=== PATIENT | female | born 1985 | race Caucasian/White ===

== ENCOUNTER → 2017-04-02 | Outpatient (REF) | payer BC, OTHER ==
[~2017-04-02] MED LIST: IBUP80TA PO; TYLE325T5 PO
[2017-04-02 19:34] LABS: MEAN CORPUSCULAR HEMOGLOBIN 32.1 pg (27.0-33.0); MEAN CORPUSCULAR HGB CONC 34.4 g/dl (32.0-36.5); MEAN CORPUSCULAR VOLUME 93.3 fl (80.0-96.0); RED CELL DISTRIBUTION WIDTH 12.3 % (11.5-14.5); WHITE BLOOD COUNT 7.2 K/mm3 (4.0-10.0)
[2017-04-02 20:18] LABS: CONTROL LINE HCG INT CTR LINE PRESENT
== END ==
LOC: M LAB REF 16:28
PROVIDERS: ATTEND Obstetrics & Gynecology
DX: O36.80X0 Pregnancy with inconclusive fetal viability, not applicable or unspecified (principal)

== ENCOUNTER → 2017-05-05 | Outpatient (REF) | payer BC, OTHER | LOC: M LAB REF 16:38 | PROVIDERS: ATTEND Obstetrics & Gynecology | DX: Z34.81 Encounter for supervision of other normal pregnancy, first trimester (principal); Z3A.11 11 weeks gestation of pregnancy ==

== ENCOUNTER → 2017-08-21 | Outpatient (CLI) | payer OTHER ==
[2017-08-21 13:40] LABS: HEMATOCRIT 30.9 % (36.0-47.0); HEMOGLOBIN 10.8 g/dl (12.0-16.0); MEAN CORPUSCULAR HEMOGLOBIN 33.3 pg (27.0-33.0); MEAN CORPUSCULAR VOLUME 95.4 fl (80.0-96.0); PLATELET COUNT, AUTOMATED 138 10^3/uL (150-450); RED BLOOD COUNT 3.24 10^6/uL (4.00-5.40); RED CELL DISTRIBUTION WIDTH 12.8 % (11.5-14.5); WHITE BLOOD COUNT 8.8 10^3/uL (4.0-10.0)
[2017-08-21 13:58] LABS: GLUCOSE CHALLENGE TEST 1 HOUR 176 MG/DL (LESS THAN 140)
== END ==
LOC: M LAB 11:25
DX: Z36.89 Encounter for other specified antenatal screening (principal); Z3A.00 Weeks of gestation of pregnancy not specified
CPT/HCPCS: 82950

== ENCOUNTER → 2017-09-03 | Outpatient (CLI) | payer OTHER ==
[2017-09-03 10:17] LABS: 1 HR GLUCOSE 156 MG/DL (LESS THAN 180)
[2017-09-03 10:43] LABS: GLUCOSE, FASTING 76 MG/DL (LESS THAN 95)
[2017-09-03 11:11] LABS: 2 HR GLUCOSE 152 MG/DL (LESS THAN 155)
[2017-09-03 11:56] LABS: 3 HR GLUCOSE 138 MG/DL (LESS THAN 140)
== END ==
LOC: M LAB 07:47
DX: Z36.89 Encounter for other specified antenatal screening (principal); Z3A.00 Weeks of gestation of pregnancy not specified
CPT/HCPCS: 82951

== ENCOUNTER → 2017-09-25 | Outpatient (REF) | payer SELFPAY, OTHER ==
[2017-09-25 13:48] LABS: HEMATOCRIT 31.3 % (36.0-47.0); HEMOGLOBIN 10.9 g/dl (12.0-16.0); MEAN CORPUSCULAR HEMOGLOBIN 33.3 pg (27.0-33.0); MEAN CORPUSCULAR HGB CONC 34.8 g/dl (32.0-36.5); MEAN CORPUSCULAR VOLUME 95.7 fl (80.0-96.0); PLATELET COUNT, AUTOMATED 130 10^3/uL (150-450); RED BLOOD COUNT 3.27 10^6/uL (4.00-5.40); RED CELL DISTRIBUTION WIDTH 13.1 % (11.5-14.5); WHITE BLOOD COUNT 7.7 10^3/uL (4.0-10.0)
== END ==
LOC: M LAB REF 13:30
DX: Z36.89 Encounter for other specified antenatal screening (principal); D69.6 Thrombocytopenia, unspecified; Z34.83 Encounter for supervision of other normal pregnancy, third trimester
CPT/HCPCS: 85027

== ENCOUNTER → 2017-10-23 | Outpatient (REF) | payer OTHER | LOC: M LAB REF 12:59 | DX: Z34.83 Encounter for supervision of other normal pregnancy, third trimester (principal); Z3A.00 Weeks of gestation of pregnancy not specified | CPT/HCPCS: 87081 ==

== ENCOUNTER 2017-11-25 15:36 | Inpatient (IN) | payer OTHER ==
[2017-11-25] MEDS: LR 500 ML IV (16:20)
[2017-11-25 16:47] LABS: HEMATOCRIT 35.1 % (36.0-47.0); HEMOGLOBIN 12.5 g/dl (12.0-15.5); MEAN CORPUSCULAR HEMOGLOBIN 34.1 pg (27.0-33.0); MEAN CORPUSCULAR HGB CONC 35.6 g/dl (32.0-36.5); MEAN CORPUSCULAR VOLUME 95.6 fl (80.0-96.0); PLATELET COUNT, AUTOMATED 151 10^3/uL (150-450); RED BLOOD COUNT 3.67 10^6/uL (4.00-5.40); RED CELL DISTRIBUTION WIDTH 12.8 % (11.5-14.5)
[2017-11-25] MEDS: miSOPROStol 50 MCG 1/2 TAB (S0191) PO (17:29)
[2017-11-25] MEDS ORDERED: miSOPROStol 50 MCG 1/2 TAB (S0191) PO (17:30)
[2017-11-25] MEDS ORDERED: LR 1,000 ML IV (22:26)
[2017-11-25] MEDS ORDERED: OXYTOCIN DRIP 30 UNITS in APPROPRIATE DILUENT 1 EA IV (22:30)
[2017-11-26] MEDS: OXYTOCIN DRIP 30 UNITS in APPROPRIATE DILUENT 1 EA IV (00:18)
[2017-11-26] MEDS ORDERED: MEASLES,MUMPS,RUBELLA VACCINE INJ (MMR-II) (90707) SC (00:30)
[2017-11-26] MEDS: LIDOCAINE 1% MDV 20ML VIAL INFIL (00:30)
[2017-11-26] MEDS ORDERED: DIBUCAINE 1% OINTMENT 30GM TOP (00:30)
[2017-11-26] MEDS ORDERED: METHYLERGONOVINE MALEATE 0.2 MG TAB PO (00:30)
[2017-11-26] MEDS ORDERED: RHOGAM 300 MCG (1500 IU) INJ (J2790) IM (00:30)
[2017-11-26] MEDS ORDERED: ANUSOL HC CREAM 30GM TOP (00:30)
[2017-11-26] MEDS: IBUPROFEN 800 MG TAB PO ×3 (01:08→18:31)
[2017-11-26] MEDS: ACETAMINOPHEN 500 MG TAB PO ×3 (04:53→22:29)
[2017-11-26] MEDS: PRENATAL VITAMINS CHEWABLE TABLET PO (08:09)
[2017-11-26] MEDS: DOCUSATE SODIUM 100 MG CAP PO (21:43)
[2017-11-27] MEDS: IBUPROFEN 800 MG TAB PO (05:40)
[2017-11-27] MEDS: PRENATAL VITAMINS CHEWABLE TABLET PO (07:32)
[2017-11-27] MEDS: ACETAMINOPHEN 500 MG TAB PO (07:32)
== END 2017-11-27 15:52 | disposition home or self-care (01) | DRG 775 ==
LOC: M LDI 15:36 → M OBS 11-26 02:13 → M LDI 15:41
PROVIDERS: Advanced Practice Midwife
PROC: 10E0XZZ Delivery of Products of Conception, External Approach (ICD-10-PCS; principal; 2017-11-25)
PROC: 0HQ9XZZ Repair Perineum Skin, External Approach (ICD-10-PCS; 2017-11-25)
PROC: 3E0DXGC Introduction of Other Therapeutic Substance into Mouth and Pharynx, External Approach (ICD-10-PCS; 2017-11-25)
DX: O48.0 Post-term pregnancy (principal); O99.12 Other diseases of the blood and blood-forming organs and certain disorders involving the immune mechanism complicating childbirth; Z37.0 Single live birth; Z3A.41 41 weeks gestation of pregnancy; D69.6 Thrombocytopenia, unspecified; Z88.2 Allergy status to sulfonamides; Z88.0 Allergy status to penicillin; Z88.8 Allergy status to other drugs, medicaments and biological substances; O70.0 First degree perineal laceration during delivery

== ENCOUNTER → 2025-05-30 | Outpatient (CLI) | payer OTHER ==
[~2025-05-30] MED LIST changes: +MAPA500T2 PO; +PRENTAB9 PO
== END ==
LOC: M WHC 15:43
PROVIDERS: ATTEND Obstetrics & Gynecology
DX: Z12.31 Encounter for screening mammogram for malignant neoplasm of breast (principal); R92.333 Mammographic heterogeneous density, bilateral breasts; R92.8 Other abnormal and inconclusive findings on diagnostic imaging of breast

== ENCOUNTER → 2025-06-07 | Outpatient (CLI) | payer OTHER | LOC: M WHC 15:12 | PROVIDERS: ATTEND Obstetrics & Gynecology | DX: Z12.31 Encounter for screening mammogram for malignant neoplasm of breast (principal) ==